=== PATIENT | female | born 2000 | race Caucasian/White ===

== ENCOUNTER 2020-01-04 16:09 | Emergency (ER) | payer OTHER ==
--- NOTE | 2020-01-04 16:45 | ER Document Report ---
ED Medical Screen (RME) - General Stated Complaint: POSSIBLE MISCARRIAGE Time Seen by Provider: 01/04/20 16:40 Mode of Arrival: Ambulatory Information source: Patient Notes: Patient presents reporting that she had a positive 2 weeks ago. Patient states that she had had nausea daily and then it had resolved. Patient states she became concerned that she may be having a miscarriage and took a test. Patient states that one of the test was positive and 1 was negative. Patient has not had an ultrasound to confirm this . Patient denies any vaginal bleeding or discharge. Last menstrual period was in November of this year. I have greeted and performed a rapid initial assessment of this patient. A comprehensive ED assessment and evaluation of the patient, analysis of test results and completion of the medical decision making process will be conducted by additional ED providers. Physical Exam - Vital signs Vitals: Temp Pulse Resp BP Pulse Ox 97.3 F 87 17 133/80 H 100 01/04/20 16:16 01/04/20 16:16 01/04/20 16:16 01/04/20 16:16 01/04/20 16:16 - General General appearance: Appears well, Alert In distress: None Course - Vital Signs Vital signs: Temp Pulse Resp BP Pulse Ox 97.3 F 87 17 133/80 H 100 01/04/20 16:16 01/04/20 16:16 01/04/20 16:16 01/04/20 16:16 01/04/20 16:16
[2020-01-04 17:45] LABS: ABSOLUTE EOSINOPHILS # (AUTO) 0.1 10^3/uL (0.0-0.6); ABSOLUTE LYMPHOCYTES (AUTO) 1.8 10^3/uL (0.5-4.7); ABSOLUTE MONOCYTES (AUTO) 0.4 10^3/uL (0.1-1.4); ABSOLUTE NEUT (AUTO) 4.5 10^3/uL (1.7-8.2); BASOPHILS % (AUTO) 0.4 % (0-2); EOSINOPHILS % (AUTO) 0.9 % (0-6); HEMOGLOBIN 14.8 g/dL (12.0-15.5); LYMPHOCYTES % (AUTO) 26.4 % (13-45); MEAN CORPUSCULAR HEMOGLOBIN 31.5 pg (27.0-33.4); MEAN CORPUSCULAR VOLUME 88 fl (80-97); MONOCYTES % (AUTO) 6.5 % (3-13); PLATELET COUNT 185 10^3/uL (150-450); RED BLOOD COUNT 4.68 10^6/uL (3.72-5.28); RED CELL DISTRIBUTION WIDTH 14.3 % (11.5-14.0); SEGMENTED NEUTROPHILS % (AUTO) 65.8 % (42-78); TOTAL CELLS COUNTED % (AUTO) 100 %; WHITE BLOOD COUNT 6.8 10^3/uL (4.0-10.5)
[2020-01-04 18:02] LABS: APPEARANCE,URINE SLIGHTLY-CLOUDY; BILIRUBIN,URINE NEGATIVE (NEGATIVE); COLOR,URINE YELLOW; GLUCOSE, URINE NEGATIVE (NEGATIVE); KETONES,URINE NEGATIVE (NEGATIVE); LEUKOCYTE ESTERASE,URINE MODERATE (NEGATIVE); NITRITE,URINE NEGATIVE (NEGATIVE); PROTEIN,URINE NEGATIVE (NEGATIVE); URINE SPECIFIC GRAVITY 1.023
[2020-01-04 19:40] VITALS: BP 117/63
--- NOTE | 2020-01-04 20:23 | ER Document Report ---
ED General - General Chief Complaint: OB Problem (<20wks) Stated Complaint: POSSIBLE MISCARRIAGE Time Seen by Provider: 01/04/20 16:40 Primary Care Provider: [facility] [Provider Group] - Follow up as needed Mode of Arrival: Ambulatory - [facility] Notes: Patient is a 19 y/o female who presents for a possible miscarriage. Patient states she took a test 2 weeks ago that was positive. She endorses -like symptoms such as nausea and feet swelling. However, she states that 2 days ago her symptoms all stopped and she began feeling worse. She endorses myalgias, fatigue, abdominal cramping, and nausea. She states she took a repeat test which was 2 days ago. She denies vaginal bleeding, vaginal discharge, vomiting, fever, shortness of breath, chest pain, and diarrhea. Her last menstrual period was on 11/21/2019. G1, P0. She has a his tory of spherocytosis, elliptocytosis, asthma, and scoliosis. She denies any alcohol or tobacco use. - Related Data Allergies/Adverse Reactions: cyclobenzaprine [From Flexeril] Allergy (Verified 01/04/20 19:27) naproxen Allergy (Verified 01/04/20 19:27) Past Medical History - General Information source: Patient - Social History Smoking Status: Former Smoker Frequency of alcohol use: None Drug Abuse: None Family History: Reviewed & Not Pertinent - Medical History Notes: Hx Spherocytosis, elliptocytosis Pulmonary Medical History: Reports: Hx Asthma Musculoskeletal Medical History: Reports Other - Hx scoliosis Review of Systems - Review of Systems Constitutional: See HPI EENT: No symptoms reported Cardiovascular: No symptoms reported Respiratory: No symptoms reported Gastrointestinal: No symptoms reported Genitourinary: See HPI Female Genitourinary: No symptoms reported Musculoskeletal: No symptoms reported Skin: No symptoms reported Hematologic/Lymphatic: No symptoms reported Neurological/Psychological: No symptoms reported Physical Exam - Vital signs Vitals: Temp Pulse Resp BP Pulse Ox 97.3 F 87 17 133/80 H 100 01/04/20 16:16 01/04/20 16:16 01/04/20 16:16 01/04/20 16:16 01/04/20 16:16 Course - Re-evaluation Re-evalutation: Patient is a 19 y/o female who presents for possible miscarriage. She denies any vaginal bleeding and discharge but had a + test two weeks ago and had -like symptoms that stopped two days ago. She now endorses myalgias, fatigue, nausea, and abdominal cramping. Vital signs are within normal limits. On exam, abdomen is soft and nontender with active bowel sounds in all four quadrants. CBC unremarkable and within normal limits. Serum HCG negative with a quant <2.39. Rhogam workup: A+ with no indication for rhogam in future pregnancies. UA shows moderate leukocyte esterase with 5 WBCs, however it is a dirty urine as there are 16 squamous epithelial cells. When asked, patient denies dysuria, therefore urine culture will be ordered but no need for antibiotic treatment at this time. Based on patient's presentation and workup, I am suspicious of an early miscarriage. Lengthy discussion with patient concerning these results. We discussed the importance of monitoring her symptoms and following up with her primary care provider or returning to the ED if her symptoms worsen. Patient understands and is in agreement with plan. Pat ient will be discharged home. - Vital Signs Vital signs: Temp Pulse Resp BP Pulse Ox 98.9 F 84 16 117/63 100 01/04/20 19:36 01/04/20 19:36 01/04/20 19:36 01/04/20 19:36 01/04/20 19:36 - Laboratory Result Diagrams: 01/04/20 17:00 Laboratory results interpreted by me: 01/04/20 01/04/20 17:00 17:00 RDW 14.3 H Urine Urobilinogen 2.0 H Ur Leukocyte Esterase MODERATE H Discharge - Discharge Clinical Impression: Miscarriage, Abdominal cramping Condition: Stable Disposition: HOME, SELF-CARE Additional Instructions: Miscarriage You may of had a miscarriage (medically called a "spontaneous "). The miscarriage occurred because the fetus did not develop normally. There is nothing you did to cause it, and nothing you could have done to prevent it. About one in four ends in miscarriage. You should rest in bed for two or three days. As there is some risk of infection of the uterus, you should not have intercourse for one week (or until okayed by your physician). You might not have a period for six to eight weeks. You should not become again for at least three months -- the uterus requires time to get back to normal. Call the primary care doctor or return for re-examination if there is heavy or persistent vaginal bleeding, fever, foul discharge, continued cramping pains, or abdominal pain. Referrals: [facility] [Provider Group] - Follow up as needed
== END 2020-01-04 21:00 | disposition home or self-care (01) ==
LOC: ER 16:09
DX: O03.9 Complete or unspecified spontaneous abortion without complication (principal)
CPT/HCPCS: 36415; 81001; 84702; 85025; 86900; 86901; 87086; 87088; 87186; 99283